=== PATIENT | female | born 1945 | race Asian ===

== ENCOUNTER 2016-07-14 21:22 | Emergency (ER) | payer MEDICARE, OTHER ==
[2016-07-14 22:19] LABS: Hematocrit 40.6 % (37.0-47.0); Mean Cell Volume 94.9 fl (78-100); Mean Corpuscular Hemoglobin 32.7 pg (27-31); Mean Corpuscular Hgb Conc 34.5 g/dl (32-36); Mean Platelet Volume 10.4 fl (6.0-9.5); Neutrophil # 6.2 K/mm3 (1.3-6.0); Neutrophil % 53.3 % (42-75.0); Platelet Count 292 K/mm3 (150-450); Red Blood Count 4.28 M/mm3 (4.2-5.4); Red Cell Distribution Width 12.8 % (11.5-14.0); White Blood Count 11.5 K/mm3 (4.0-10.5)
[2016-07-14 22:31] LABS: Albumin * 3.8 gm/dl (3.4-5.0); BUN/Creatinine Ratio 13.2 (9.0-21.6); Bilirubin, Total 0.3 mg/dL (0.0-1.1); Ca. Corrected For Albumin 8.7 mg/dL (8.4-10.2); Calcium * 8.9 mg/dL (7.9-10.9); Carbon Dioxide 28.6 mmol/L (24-32.6); Potassium 3.6 mmol/L (3.4-4.6); Total Protein 7.8 gm/dL (6.2-8.2)
[2016-07-14 23:42] LABS: Urine Bilirubin Negative (NEGATIVE); Urine Blood 50 /ul (NEGATIVE); Urine Ketone Negative (NEGATIVE); Urine Nitrite Negative (NEGATIVE); Urine Protein Negative (NEGATIVE); Urine Specific Gravity <=1.005 SP.GR. (1.005-1.010); Urine Urobilinogen Normal (NORMAL)
[2016-07-14 23:51] LABS: Urine Appearance Clear; Urine Bacteria 2+; Urine Color Pale Yellow; Urine RBC None Seen /hpf (0-5); Urine WBC 0-5 /hpf (0-5)
[2016-07-14 23:59] VITALS: BP 138/72
--- NOTE | 2016-07-15 01:24 | ERNOTE ---
Abdominal HPI - Narrative Date of Service: 07/14/16 - General Chief Complaint: Abdominal Pain Time Seen by Provider: 07/14/16 23:06 Source: patient Exam Limitations: no limitations - Immun/Allergies/Home Medications Immunizatons: IMMUNIZATION HX Immunizations Up to Date Yes History of Influenza Vaccine No Hx Pneumococcal Vaccination No Allergies/Adverse Reactions: Allergies Penicillins Adverse Reaction (Severe, Verified 07/14/16 21:52) Other Home Medications: HOME MEDICATIONS Amlodipine Besylate [Norvasc] 5 mg PO DAILY 05/31/13 [Last Taken Unknown] Atorvastatin Calcium [Lipitor] 10 mg PO DAILY 05/31/13 [Last Taken Unknown] Omeprazole [Prilosec] 20 mg PO BID 05/31/13 [Last Taken Unknown] Simethicone [Gas-X] 125 mg PO ACHS PRN 07/14/16 [Last Taken Unknown] Dexlansoprazole [Dexilant] 30 mg PO DAILY #30 cap 07/15/16 [Last Taken Unknown] - History of Present Illness Narrative: 70 year old that has been having been having food boluses being hung up at the gastroesophageal juction. When she has been able to eat small amounts there has been bloating. Able to swallow liquids. Yesterday there was pain that occurred bilaterally at the lower ribs and radiated to the left flank area. It is unusual to have pain with the bloating, which is what prompted the daughter to encourage the mother to come to the ED. There is a long history of bloating, and stomach problems which she has previously undergone an upper endoscopy. Denies any N/V/D, fevers, chills, dysuria. Timing: intermittent Quality: mild Modifying Factors - (Improves): Present: other - nothing Modifying Factors - (Worsens): Present: eating Associated Symptoms: Present: denies symptoms Prior Abdominal Problems: Present: similar symptoms Review of Systems - Review of Systems Constitutional: Present: no symptoms reported EYE: Present: no symptoms reported ENT: Present: no symptoms reported Respiratory: Present: no symptoms reported Cardiology: Present: no symptoms reported Gastrointestinal/Abdominal: Present: See HPI Genitourinary: Present: no symptoms reported Musculoskeletal: Present: no symptoms reported Skin: Present: no symptoms reported Neurological: Present: no symptoms reported Endocrine: Present: no symptoms reported Hematologic/Lymphatic: Present: no symptoms reported Psych: Present: no symptoms reported - Patient's Past Medical History Patient History - Medical: GERD, Other Patient History - Cardiac/Respiratory: Hypertension, Hyperlipidemia Patient History - Surgical Procedures: Cholecystectomy - Family History Mother Family History - Medical: History Unknown Father Family History - Medical: History Unknown - Social History Living Situations: home Abuse History: No History of abuse Psych History: No pertinent hx Smoking Status: Current every day smoker Alcohol Use: none Drug Use: none - Immunizations Immunizations Up to Date: Yes Hx Pneumococcal Vaccination: No History of Influenza Vaccine: No Physical Exam - Physical Exam General Appearance: Present: no apparent distress Eye Exam: Normal inspection: bilateral, PERRL: bilateral Ears, Nose, Throat: Present: normal ENT inspection Neck: Present: normal inspection Respiratory: Present: no respiratory distress Cardiovascular/Chest: Present: regular rate, rhythm Gastrointestinal/Abdominal: Present: nontender Back Exam: Present: normal inspection Extremity Exam: Present: normal inspection Neurological Exam: Present: alert, oriented, normal mood/affect, squeegee tender II-XII nml as tested Skin Exam: Present: normal color Lymphatic Exam: Present: no adenopathy ED Progress - Results and Orders Patient's Lab Results:: I have reviewed the patient's lab results. - Vital Signs Patient's Vital Signs:: I have reviewed the patient's vital signs. Vital Signs: Vital Signs 07/14/16 07/14/16 21:47 23:58 Temperature 36.7 C 36.7 C Pulse Rate 77 79 Respiratory 16 14 Rate Blood Pressure 142/74 138/72 O2 Sat by Pulse 96 96 Oximetry - CT/Ultrasound CT/Ultrasound Narrative: CT was unremarkable. - Progress/Reassessment Chief Complaint: Abdominal Pain Progress Note-Subjective: 07/15/16 07:40 The discomfort that she was having was likely due to gastritis, peptic ulcer, and esophagitis. Departure - Departure Clinical Impression: GERD (gastroesophageal reflux disease) Disposition: Home self-care Condition: Good Instructions: Heartburn, [id number] Print Language: [place] Referrals: Letty Crespo DO [Primary Care Provider] - Prescriptions: Dexlansoprazole [Dexilant] 30 mg PO DAILY #30 cap
== END 2016-07-15 01:00 | disposition home or self-care (01) ==
LOC: ER 21:22
DX: K21.9 Gastro-esophageal reflux disease without esophagitis (principal); F17.210 Nicotine dependence, cigarettes, uncomplicated; I10 Essential (primary) hypertension; E78.5 Hyperlipidemia, unspecified

== ENCOUNTER 2016-08-07 09:56 | Day surgery (SDC) | payer MEDICARE ==
[~2016-08-07 09:56] MED LIST: RINGERS SOLUTION,LACTATED 1,000 ML IV PRN
[2016-08-07 12:04] VITALS: BP 121/78
--- NOTE | 2016-08-07 16:20 | OR ---
Operative Report - Dictated Report Narrative: Date: 08/07/2016 Preop diagnosis: Epigastric pain, bloating, and dysphagia Postop diagnosis: Mild gastropathy, small hiatal hernia Procedure: Esophagogastroduodenoscopy Surgeon: Shaun Recinos MD Proctoring surgeon: Ana Steen MD Anesthesia: MAC per STEAM SERVICE INSPECTOR EBL: None Description: After informed consent a bite block was inserted and IV sedation was administered per [employer] SERVICE INSPECTOR. Flexible video endoscope was inserted through the bite block, through the posterior pharynx and into the esophagus under direct vision. The scope was then advanced through the esophagus, and into the stomach. Retroflexion of the scope within the stomach revealed a small hiatal hernia. Inspection of the body and antrum showed mild gastropathy. No ulcers were noted. The duodenum was not cannulated as the patient experienced some laryngospasm at this point and therefore the scope was withdrawn into the distal esophagus. No abnormalities were seen. Remainder of the esophagus was unremarkable. The patient tolerated the procedure well and was discharged from the endoscopy suite in stable condition. RECOMMENDATIONS: Continue acid suppression. Repeat EGD will be PRN.
== END 2016-08-07 09:57 | disposition home or self-care (01) ==
LOC: AMB 09:56
PROVIDERS: ATTEND Specialist
PROC: 0DJ08ZZ Inspection of Upper Intestinal Tract, Via Natural or Artificial Opening Endoscopic (ICD-10-PCS; principal; 2016-08-07 10:55)
DX: K44.9 Diaphragmatic hernia without obstruction or gangrene (principal); R13.10 Dysphagia, unspecified; K21.9 Gastro-esophageal reflux disease without esophagitis; E78.00 Pure hypercholesterolemia, unspecified; F17.200 Nicotine dependence, unspecified, uncomplicated; Z68.23 Body mass index [BMI] 23.0-23.9, adult